=== PATIENT | female | born 1960 | race African-American/Black ===

== ENCOUNTER 2023-10-02 09:37 | Emergency (ER) | payer BC ==
[~2023-10-02] VITALS: Ht 165.1 cm; Wt 81.8 kg
[~2023-10-02 09:37] MED LIST: HTN MED
[2023-10-02] MEDS ORDERED: ATOR20TA65 PO (09:41)
[2023-10-02] MEDS ORDERED: LOSA100T59 PO (09:41)
[2023-10-02] MEDS ORDERED: AMLO10TA55 PO (09:41)
[2023-10-02 12:12] LABS: BASOPHILS % (AUTO) 0.5 % (0.0-2.0); EOSINOPHILS % (AUTO) 5.2 % (1.0-6.0); HEMATOCRIT 37.8 % (36-46); HEMOGLOBIN 12.2 g/dL (12.0-16.0); LYMPHOCYTES # (AUTO) 2.8 K/uL (1.0-4.8); LYMPHOCYTES % (AUTO) 40.3 % (22.0-44.0); MEAN CORPUSCULAR HEMOGLOBIN 27.6 pg (26.0-34.0); MEAN CORPUSCULAR HGB CONC 32.3 G/dL (31.0-37.0); MEAN CORPUSCULAR VOLUME 86 fL (80-100); MONOCYTES # (AUTO) 0.6 K/uL (0.1-1.0); NEUTROPHILS # (AUTO) 3.2 K/uL (1.8-7.7); PLATELET COUNT (AUTO) 222 K/uL (150-450); RED BLOOD CELL COUNT(AUTO) 4.42 MIL/uL (4.00-5.20); RED CELL DISTRIBUTION WIDTH 14.6 % (11.5-14.5); WHITE BLOOD COUNT (AUTO) 6.9 K/uL (4.5-11.0)
[2023-10-02 12:20] LABS: ANION GAP 4 mmol/L (8-16); CALCIUM, TOTAL 9.9 mg/dL (8.8-10.5); CARBON DIOXIDE 34 mmol/L (22-29); CHLORIDE 104 mmol/L (98-107); CREATININE 0.84 mg/dL (0.60-1.30); GLOMERULAR FILTR. RATE CALC > 60 mL/min (>60); GLUCOSE,RANDOM 104 mg/dL (70-110); POTASSIUM 3.5 mmol/L (3.5-5.1); SODIUM SERUM 142 mmol/L (136-145); UREA NITROGEN, BLOOD 20 mg/dL (7-18)
[2023-10-02 12:26] LABS: ALANINE AMINOTRANSFERASE 52 U/L (12-78); ALBUMIN 3.7 g/dL (3.4-5.0); ALKALINE PHOSPHATASE 87 U/L (46-116); ASPARTATE AMINOTRANSFERASE 27 U/L (15-37); BILIRUBIN,TOTAL 0.4 mg/dL (0.1-1.0); LIPASE 25 U/L (16-77); TOTAL PROTEIN, SERUM 7.6 g/dL (6.4-8.2)
[2023-10-02 12:31] LABS: TROPONIN I-HIGH SENSITIVITY 5 ng/L (<51)
[2023-10-02 14:11] VITALS: BP 145/69; PULSE 98; RESP 18; TEMP 98.2
[2023-10-02] MEDS: TraMADol HCL 50 MG TABLET PO ONE (16:11)
[2023-10-02] MEDS: SODIUM CHLORIDE 0.9% 1,000 ML IV ONE (16:11)
[2023-10-02] MEDS: KETOROLAC TROMETHAMINE 30 MG/ML VIAL IVP ONE (16:11)
[2023-10-02] MEDS ORDERED: CYCL-448 PO (17:14)
== END 2023-10-02 17:30 | disposition home or self-care (01) ==
LOC: EMS 09:37
DX: R10.9 Unspecified abdominal pain (principal); M54.9 Dorsalgia, unspecified
CPT/HCPCS: 99285; 74176; 96374; 96361; 80053; 83690; 84484; 85025; 36415; J1885